=== PATIENT | male | born 1950 | race Caucasian/White ===

== ENCOUNTER 2020-12-21 08:45 | Outpatient (RCR) | payer MEDICARE ==
[2020-11-30 11:29] LABS: BASOPHILS % (AUTO) 1 % (0-10); EOSINOPHILS # (AUTO) 0.1 10^3/uL (0.0-0.3); EOSINOPHILS % (AUTO) 1 % (0-10); HEMATOCRIT 42 % (40-54); HEMOGLOBIN 14.2 g/dL (13.3-17.7); LYMPHOCYTES # (AUTO) 1.2 10^3/uL (1.0-4.0); LYMPHOCYTES % (AUTO) 18 % (12-44); MEAN CORPUSCULAR HEMOGLOBIN 30 pg (25-34); MEAN CORPUSCULAR HGB CONC 34 g/dL (32-36); MEAN CORPUSCULAR VOLUME 90 fL (80-99); MEAN PLATELET VOLUME 10.7 fL (9.0-12.2); MONOCYTES # (AUTO) 0.4 10^3/uL (0.0-1.0); MONOCYTES % (AUTO) 6 % (0-12); NEUTROPHILS # (AUTO) 4.9 10^3/uL (1.8-7.8); NEUTROPHILS % (AUTO) 74 % (42-75); PLATELET COUNT 189 10^3/uL (130-400); WHITE BLOOD COUNT 6.6 10^3/uL (4.3-11.0)
[2020-11-30 11:52] LABS: ALANINE AMINOTRANSFERASE 13 U/L (0-55); ALKALINE PHOSPHATASE 71 U/L (40-136); BILIRUBIN,TOTAL 0.5 MG/DL (0.1-1.0); BUN/CREATININE RATIO 16; CALCIUM 9.2 MG/DL (8.5-10.1); CARBON DIOXIDE 28 MMOL/L (21-32); CHLORIDE 106 MMOL/L (98-107); CREATININE SERUM 0.79 MG/DL (0.60-1.30); GFR ESTIMATED > 60; GLUCOSE 100 MG/DL (70-105); POTASSIUM 4.2 MMOL/L (3.6-5.0); SODIUM 139 MMOL/L (135-145); TOTAL PROTEIN 6.4 GM/DL (6.4-8.2)
== END 2020-12-24 13:04 | disposition home or self-care (01) ==
LOC: ONC 08:45
PROVIDERS: ATTEND Internal Medicine Hematology & Oncology
DX: Z45.2 Encounter for adjustment and management of vascular access device (principal); C18.7 Malignant neoplasm of sigmoid colon; C78.7 Secondary malignant neoplasm of liver and intrahepatic bile duct; R91.8 Other nonspecific abnormal finding of lung field; K76.89 Other specified diseases of liver; K86.9 Disease of pancreas, unspecified
CPT/HCPCS: 80053; 82378; 85025; G0463; 36591; 99213

== ENCOUNTER 2021-02-17 05:42 | Outpatient (CLI) | payer MEDICARE ==
[~2021-02-17] VITALS: Ht 175.3 cm; Wt 71.8 kg
== END 2021-02-17 13:04 ==
LOC: PREOP 05:42
PROVIDERS: ATTEND Otolaryngology Otolaryngology/Facial Plastic Surgery
DX: Z01.818 Encounter for other preprocedural examination (principal)

== ENCOUNTER 2021-03-10 05:39 | Outpatient (CLI) | payer MEDICARE | END 2021-03-10 11:56 | disposition home or self-care (01) | LOC: PREOP 05:39 | PROVIDERS: ATTEND Otolaryngology Otolaryngology/Facial Plastic Surgery | DX: Z01.818 Encounter for other preprocedural examination (principal) ==

== ENCOUNTER 2021-03-17 06:12 | Day surgery (SDC) | payer MEDICARE ==
[2021-03-17] VITALS (9 sets, daily range): BP systolic 117–148; BP diastolic 59–84
[~2021-03-17] VITALS: Ht 175.3 cm; Wt 71.8 kg
--- OUTSIDE RECORDS SUMMARY | 2021-03-17 06:15 | XMS REPORT | Clinical Summary ---
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 Metabolic Panel, Carcinoembryonic Antigen - Chemistry sodium, serum 140 mmol/L 185-505 3116/07/29 carbon dioxide, venous blood 25.7 mmol/L 21.0-32 .0 potassium, serum 4.5 mmol/L 3.5-5.2 chloride, serum 109 mmol/L 98-107 blood glucose 91 mg/dL 65-95 urea nitrogen, blood 16 mg/dL 7-18 creatinine, serum 0.73 mg/dL 0.60-1.30 Estimated Glomerular Filtration Rate (calc) 113 (?) mL/min/1.73m2 = OR > 60 mL/min alanine aminotransferase (SGPT), serum 15 U/L 12-78 aspartate aminotransferase (SGOT), serum 23 U/L 19-43 calcium, serum 8.8 mg/dL 8.5-10.1 bilirubin, serum, total 0.40 mg/dL 0.00-1.00 Lab Report: CBC W/DIFF, Comp. Metabolic Panel, Carcinoembryonic Antigen - Hematology leukocyte count, blood 6.6 10^3/MM^3 10*3/mm3 4.6-10.2 neutrophils as percent of blood leukocytes 71.0 % 42.2-75.2 monocytes as percent of blood leukocytes 7.4 % 1.7-9.3 lymphocytes as percent of blood leukocytes 19.4 % 20.5-51.1 erythrocyte (RBC) count 4.80 10^6/MM^3 10*6/mm3 4.50-6.5 0 hemoglobin, blood 14.4 g/dL 14.0-18.0 hematocrit, blood 44.4 % 40.0-54.0 mean corpuscular volume, RBC 92 fL 80-97 mean corpuscular hemoglobin, RBC 30.0 pg 27. 0-31.2 mean corpuscular hemoglobin concentration, RBC 32.5 G/DL % 31.8-35.4 red blood cell distribution width 12.5 % 11 .6-14.8 platelet count 161 10^3/MM^3 10*3/mm3 142-424 Lab Report: CBC W/DIFF, Comp. Metabolic Panel, Carcinoembryonic Antigen - Lab Alkaline phosphatase 68 [phone]
--- OUTSIDE RECORDS SUMMARY | 2021-03-17 06:15 | XMS REPORT | Continuity of Care Document ---
Author Author [facility] Organization [facility] Address Unknown Phone Unavailable Care Team Providers Care Extension Supervisor Name Role Phone Non-Staff, Physician PCP Unavailable Encounter [facility] [id number] Date(s): 03/15/21 - 03/15/21 [facility] [address] [facility] [facility] [address] [place], [place] [address] [phone] Discharge Disposition: Home or Self Care Attending Physician: Physician, Nonstaff Admitting Physician: Physician, Nonstaff Allergies, Adverse Reactions, Alerts No data available for this section Assessment and Plan No data available for this section Functional Status No data available for this section Immunizations No data available for this section Medications No data available for this section Mental Status No data available for this section Problem List No data available for this section Procedures No data available for this section Results Laboratory List Name Date SARS-CoV-2 (Covid-19) RNA 03/15/21 Most recent to 1 oldest [Reference Range]: In ICU? Unknown (03/15/21 9:43 AM) status? Unknown (03/15/21 9:43 AM) Hospitalized due to Unknown COVID-19? (03/15/21 9:43 AM) Group care resident? Unknown (03/15/21 9:43 AM) Employed in Unknown Healthcare? (03/15/21 9:43 AM) Symptomatic as Unknown defined by CDC? (03/15/21 9:43 AM) SARS-CoV-2 Negative (Covid-19) RNA (03/15/21 9:43 AM) [Negative] Vital Signs No data available for this section Social History No data available for this section Health Concerns No data available for this section Implantable Device List No data available for this section Hospital Discharge Instructions No data available for this section Goals No data available for this section Reason for Referral No data available for this section Hospital Course No data available for this section
[2021-03-17] MEDS ORDERED: LACTATED RINGERS 1,000 ML IV PRN (06:30)
[2021-03-17] MEDS ORDERED: SEVOFLURANE (ULTANE) 15 ML INHAL SOLN ONE ×3 (06:56→08:47)
[2021-03-17] MEDS ORDERED: proPOfol 200 MG/20 ML (DIPRIVAN) VIAL IV ONE (06:56)
[2021-03-17] MEDS ORDERED: fentaNYL INJ 100 MCG/2 ML AMP ONE (06:56)
[2021-03-17] MEDS ORDERED: ROCURONIUM 10 MG/ML 5 ML SYRINGE IV ONE (06:56)
[2021-03-17] MEDS ORDERED: LIDOCAINE PF 2% 5 ML (XYLOCAINE) VIAL ONE (06:56)
[2021-03-17] MEDS ORDERED: ONDANSETRON 4 MG/2 ML (SDV) Z0FRAN ONE (06:56)
[2021-03-17] MEDS ORDERED: MIDAZOLAM 2 MG/2 ML (VERSED) VIAL ONE (06:57)
--- NOTE | 2021-03-17 08:25 | Progress Note-Pre Operative ---
Pre-Operative Progress Note H&P Reviewed The H&P was reviewed, patient examined and no changes noted. Date Seen by Provider: Mar 17, 2021 Time Seen by Provider: 06:30 Date H&P Reviewed: Mar 17, 2021 Time H&P Reviewed: 06:30 Pre-Operative Diagnosis: Nasopharyngeal mass, Abnormal PET scann nasopharynx ARAMIS COLE MD Mar 17, 2021 08:25
[2021-03-17] MEDS ORDERED: NEOSTIGMINE 3 MG/3 ML VIAL ONE (08:37)
[2021-03-17] MEDS ORDERED: GLYCOPYRROLATE 0.2 MG/ML (ROBINUL) 2 ML VIAL ONE (08:37)
--- NOTE | 2021-03-17 08:48 | Progress Note-Post Operative ---
Post-Operative Progess Note Surgeon (s)/Mental Health Associate (s) Surgeon ARAMIS COLE MD Mental Health Associate n/a Pre-Operative Diagnosis Nasopharyngeal mass, Abnormal PET scann nasopharynx Post-Operative Diagnosis same Post-Op Procedure Note Date of Procedure: Mar 17, 2021 Name of Procedure Performed: REmoval of Left Nasopharyngeal Mass Description & Findings Description and Findings: n/a Anesthesia Type get Estimated Blood Loss minimal Packing none. Specimen(s) collected/removed nasopharyngeal mass to pathology ARAMIS COLE MD Mar 17, 2021 08:48
[2021-03-17] MEDS ORDERED: PROMETHAZINE INJ 25 MG/ML (PHENERGAN) AMP IV PRN (09:00)
[2021-03-17] MEDS ORDERED: HYDROcodone/APAP 5 MG/325 MG (LORTAB) TAB PO PRN (09:00)
[2021-03-17] MEDS ORDERED: ACHD5005 PO (09:08)
--- NOTE | 2021-03-17 09:32 | Anesthesia-General Post-Op ---
General Patient Condition Mental Status/LOC: Same as Preop Cardiovascular: Satisfactory Nausea/Vomiting: Absent Respiratory: Satisfactory Pain: Controlled Complications: Absent Post Op Complications Complications None Follow Up Care/Instructions Patient Instructions None needed. Anesthesia/Patient Condition Patient Condition Patient is doing well, no complaints, stable vital signs, no apparent adverse anesthesia problems. No complications reported per nursing. ELEONORA VILLAGOMEZ CRNA Mar 17, 2021 09:32
== END 2021-03-17 10:35 | disposition home or self-care (01) ==
LOC: SDC 06:12
PROVIDERS: ATTEND Otolaryngology Otolaryngology/Facial Plastic Surgery
DX: J31.1 Chronic nasopharyngitis (principal); G62.9 Polyneuropathy, unspecified; M19.90 Unspecified osteoarthritis, unspecified site; R09.89 Other specified symptoms and signs involving the circulatory and respiratory systems; Z85.038 Personal history of other malignant neoplasm of large intestine; Z87.891 Personal history of nicotine dependence
CPT/HCPCS: 87081; 88305